=== PATIENT | female | born 1975 | race Caucasian/White ===

== ENCOUNTER 2018-12-21 15:41 | Observation (INO) ==
--- NOTE | 2018-12-21 15:45 | Emergency Department Note ---
Disposition Clinical Impression: Chest pain Disposition: Admitted As Inpatient Chest Pain HPI - General Chief Complaint: ED Chest Pain Stated Complaint: chest discomfort Time Seen by Provider: 12/21/18 15:41 Source: patient Mode of arrival: ambulatory Limitations: no limitations Vital Signs Reviewed: Yes Nursing Notes Reviewed: Yes - History of Present Illness HPI Narrative: Patient has been having midsternal chest pain off and on for the past 7 days. She is not having nausea vomiting fever or chills shortness of breath or diaphoresis at the present time. She has never had anything like this before. She has no family history of cardiac disease Pt complaint: chest pain Onset (ago): day(s) (7) Duration: intermittent Onset: during rest Pain Location: substernal Severity: mild Quality: heaviness Pain Radiation: none Improves with: nothing Worsens with: nothing Associated symptoms: Denies: nausea, vomiting, diaphoresis, dyspnea, syncope, palpitations, fever, cough - Related Data Home Medications Medication Instructions Recorded Confirmed Esomeprazole Magnesium [Nexium 20 mg PO QAM 12/21/18 12/21/18 24Hr] Loratadine/Pseudophed (12 HR) 1 each PO QAM 12/21/18 12/21/18 [Claritin D (12HR)] Allergies Allergy/AdvReac Type Severity Reaction Status Date / Time acetaminophen [From NyQuil] AdvReac Nausea Verified 12/31/17 14:23 aspirin AdvReac Nausea Verified 12/31/17 14:23 dextromethorphan AdvReac Nausea Verified 12/31/17 14:23 [From NyQuil] doxylamine [From NyQuil] AdvReac Nausea Verified 12/31/17 14:23 miconazole AdvReac Itching Verified 12/31/17 14:23 [From Neosporin AF] pseudoephedrine [From NyQuil] AdvReac Nausea Verified 12/31/17 14:23 All systems ED: reviewed and negative except as stated. Review of Systems: As Per HPI Constitutional: Denies: fever, chills, weakness, weight change Eyes: Denies: eye pain, eye discharge, vision change ENT ED: Reports: as per HPI Cardiovascular: Reports: as per HPI, chest pain. Denies: palpitations, dyspnea on exertion, edema, syncope Respiratory: Denies: cough, dyspnea, wheezes, hemoptysis, stridor Gastrointestinal: Denies: abdominal pain, nausea, vomiting, diarrhea, constipation, hematemesis, melena, hematochezia Genitourinary: Denies: dysuria, frequency, hematuria, discharge Musculoskeletal: Denies: back pain, neck pain, arthralgia, myalgia Integumentary: Reports: as per HPI Neurological: Denies: headache, weakness, numbness, paresthesias, confusion, abnormal gait, vertigo Psychiatric: Denies: anxiety, depression, suicidal thoughts, homicidal thoughts, auditory hallucinations, visual hallucinations Endocrine: Denies: fatigue Hematological/Lymphatic: Denies: easy bleeding, easy bruising Allergic/Immunologic: Denies: facial swelling, urticaria Chest Pain PMH - Past Medical History Medical history: Reports: no medical history Psychiatric history: Reports: no psych history - Social History Smoking Status: Current every day smoker Alcohol use: Reports: none Drug use: Reports: none Physical Exam - General Limitations: no limitations General appearance: alert, in no apparent distress - Head Head exam: atraumatic, normocephalic, normal inspection - Eye Eye exam: Present: normal appearance, PERRL, EOMI - ENT ENT exam: normal exam, normal oropharynx, mucous membranes moist - Neck Neck exam: Present: normal inspection, full ROM, trachea midline - Chest Chest inspection: Present: normal inspection, symmetric chest wall rise - Respiratory Respiratory exam: Present: normal lung sounds bilaterally - Cardiovascular Cardiovascular exam: Present: regular rate, normal rhythm, normal heart sounds - Abdominal Exam Abdominal exam: Present: soft, Non-Tender. Absent: tenderness, distention, gua rding, rebound, rigidity - Extremities Exam Extremities exam: Present: normal inspection, full ROM. Absent: tenderness, pedal edema - Back Exam Back exam: Present: normal inspection, full ROM. Absent: tenderness - Neurological Exam Neurological exam: Present: alert, oriented X3 - Psychiatric Psychiatric exam: Present: normal affect, normal mood - Skin Skin exam: Present: warm, dry, intact, normal color Chest Pain - [facility] Narrative Medical decision making narrative: I reviewed the patient's medication list Case was discussed with Dr. Messina who is graciously accepted admission to the hospital - Lab Data Lab results reviewed: Yes I reviewed the patient's lab results. - Radiology Data Radiology results reviewed: Yes I reviewed the patient's radiology results. - EKG Data EKG attestation: Yes I reviewed and interpreted this EKG. EKG results narrative: I reviewed the patient's EKG shows a heart rate is 81 bpm. AL interval is 127 ms QTQTC intervals 376 and 437 ms respectively. R axis of 82 degrees no acute ischemic changes appreciated
[2018-12-21] MEDS ORDERED: Nitroglycerin 0.4 MG TAB.SUBL SL PRN ×2 (15:48→18:38)
[2018-12-21] MEDS ORDERED: 0.9 % Sodium Chloride 1,000 ML IVC SCH ×2 (16:00→18:38)
[2018-12-21 16:02] LABS: Basophils # 0.1 K/mcL (0.0-0.2); Eosinophils # 0.2 K/mcL (0.0-0.6); Hematocrit 45.2 % (35.3-44.9); Hemoglobin 15.3 g/dL (11.5-15.4); Immature Granulocytes % 0.3 % (0-4); Lymphocytes % 32.8 %; Mean Corpuscular HGB Conc 33.8 g/dL (31.6-35.5); Mean Corpuscular Volume 91.7 fL (83.0-100.0); Monocytes # 0.7 K/mcL (0.0-1.3); Monocytes % 7.5 %; Neutrophils # 5.2 K/mcL (1.6-8.9); Platelet Count 295 K/mcL (140-400); Red Blood Count 4.93 M/mcL (3.82-4.97); Red Cell Distribution Width 12.7 % (11.5-14.5); Segmented Neutrophils % 56.4 %
[2018-12-21 16:10] LABS: INR 1.1
[2018-12-21 16:12] LABS: Activated Partial Thrombo Time 39.3 Seconds (26.0-36.0)
[2018-12-21 16:21] LABS: Alanine Aminotransferase 18 Units/L (7-52); Albumin 4.7 g/dL (3.5-5.7); Albumin/Globulin Ratio 1.3 (1.1-2.2); Alkaline Phosphatase 91 Units/L (34-104); Aspartate Amino Transferase 16 Units/L (13-39); BUN/Creatinine Ratio 12 (6-26); Bilirubin,Total 0.3 mg/dL (0.3-1.0); Blood Urea Nitrogen 10 mg/dL (6-20); Calcium 9.4 mg/dL (8.6-10.3); Carbon Dioxide 25 mEq/L (23-29); Chloride 105 mEq/L (98-107); Globulin 3.5 g/dL (2.4-3.5); Glucose 89 mg/dL (70-105); Osmolality,Calculated 285 (280-300); Potassium 4.1 mEq/L (3.5-5.1); Sodium 138 mEq/L (136-145); Total Protein 8.2 g/dL (6.4-8.9); Troponin I < 0.03 ng/mL (< 0.04); eGFR For Non-African Americans > 60 (> 60)
[2018-12-21 16:29] LABS: Bilirubin,Urine Negative (Negative); Blood,Urine Negative (Negative); Clarity,Urine Clear (Clear); Color,Urine Yellow (Yellow); Glucose,Urine (UA) Normal (Normal); Ketones,Urine Negative (Negative); Leukocyte Esterase,Urine Negative (Negative); Nitrite,Urine Negative (Negative); Protein,Urine Negative (Neg-Trace); Urobilinogen,Urine Normal (Normal)
[2018-12-21] MEDS ORDERED: Naloxone 0.4 MG/ML INJ IVP PRN (18:38)
[2018-12-22 06:21] LABS: Basophils # 0.1 K/mcL (0.0-0.2); Basophils % 0.9 %; Eosinophils # 0.2 K/mcL (0.0-0.6); Hematocrit 41.8 % (35.3-44.9); Hemoglobin 13.8 g/dL (11.5-15.4); Immature Granulocytes % 0.2 % (0-4); Lymphocytes # 3.7 K/mcL (0.6-4.6); Lymphocytes % 35.5 %; Mean Corpuscular Hemoglobin 30.6 pg (28.0-33.3); Mean Corpuscular Volume 92.7 fL (83.0-100.0); Mean Platelet Volume 9.8 fL (9.4-12.4); Monocytes # 0.7 K/mcL (0.0-1.3); Monocytes % 6.8 %; Neutrophils # 5.7 K/mcL (1.6-8.9); Platelet Count 261 K/mcL (140-400); Red Blood Count 4.51 M/mcL (3.82-4.97); Red Cell Distribution Width 13.1 % (11.5-14.5); Segmented Neutrophils % 54.6 %
[2018-12-22 06:40] LABS: BUN/Creatinine Ratio 15 (6-26); Blood Urea Nitrogen 11 mg/dL (6-20); Calcium 8.5 mg/dL (8.6-10.3); Carbon Dioxide 23 mEq/L (23-29); Chloride 111 mEq/L (98-107); Glucose 93 mg/dL (70-105); Osmolality,Calculated 289 (280-300); Potassium 4.2 mEq/L (3.5-5.1); Sodium 140 mEq/L (136-145); eGFR For Non-African Americans > 60 (> 60)
[2018-12-22 07:29] VITALS: BP 116/72
[2018-12-22] MEDS ORDERED: Loratadine/Pseudophed (12 HR) 1 EACH TABLET PO SCH (09:00)
--- NOTE | 2018-12-22 09:59 | Internal Med History&Physical ---
Date of Encounter: 12/22/18 Time of Encounter: 09:25 Assessment and Plan (1) Chest pain Current visit: Yes Status: Acute Doubt myocardial ischemia from history and physical. Repeat cardiac enzymes were ordered through emergency room. Qualifiers: Chest pain type: unspecified Qualified Code(s): R07.9 - Chest pain, unspecified Internal Medicine - H&P: HPI Chief complaint: Chest discomfort Admitted From: Emergency Dept Plans for Post Hospital Care: Home History of present illness: Ms. Huerta is a 43 year old female who came to emergency room stating she had onset of chest discomfort approximately 12/13/2018. She describes it as an intermittent "hurt" in her mid chest from her epigastric area to her upper midline chest. There was no significant radiation and no significant dyspnea associated. She denies reproduction of the discomfort with exertion. She has not had previous similar sensation. She reports taking several Tums with improvement. She came to emergency room and was evaluated and was admitted to [facility] floor for ongoing care needs. She states she feels pain-free at present time and back to her baseline. She wishes to be discharged home. Cardiovascular history is negative for hypertension [place] heart failure DVT or pulmonary embolus. Past Med Surg Social Fam HX - Past Medical History Medical history: other Additional medical history: carpal tunnel surgery both wrists. Psychiatric history: no psych history - Past Surgical History Additional surgical history: tubal ligation. UTERINE ABLASION. D&C. LEEP. carpal tunned sx bilateral - Social History Smoking Status: Current every day smoker Smokeless Tobacco Status: No Alcohol use: none Drug use: none - Family History Mother Name: Nakia Huerta Hx Family GI Disorders: Yes Hx Family Endocrine Disorder: Yes Internal Medicine - H&P: Meds Esomeprazole Magnesium [Nexium 24Hr] 20 mg PO QAM 12/21/18 [History] Loratadine/Pseudophed (12 HR) [Claritin D (12HR)] 1 each PO QAM 12/21/18 [History] Allergy/AdvReac Type Severity Reaction Status Date / Time acetaminophen [From NyQuil] AdvReac Nausea Verified 12/31/17 14:23 aspirin AdvReac Nausea Verified 12/31/17 14:23 dextromethorphan AdvReac Nausea Verified 12/31/17 14:23 [From NyQuil] doxylamine [From NyQuil] AdvReac Nausea Verified 12/31/17 14:23 miconazole AdvReac Itching Verified 12/31/17 14:23 [From Neosporin AF] pseudoephedrine [From NyQuil] AdvReac Nausea Verified 12/31/17 14:23 All Systems PM: A 10-system review of systems was performed and is negative for pertinent findings except as documented above in the HPI. Review of systems: Gen.: She reports her weight has increased approximately 15 pounds in the past year, unintentionally Cardiovascular:As per history of present illness Respiratory: She has smoked since age 14 up to one and a half packs per day. She reports having pulmonary function testing approximately 2014 and was told she had COPD. She does not use home oxygen. She denies testing for TAMMY. She reports she was found to have a "lung spot" approximately [address] done in [place]. Chest CT July 2015 showed stability from June 2014 and no further imaging was recommended. GI: She denies disorders of her liver gallbladder or exocrine pancreas : She denies hematuria dysuria or kidney stones Neurologic: She denies large distribution strokes or seizures. Endocrine: She denies diabetes thyroid disease or hyperlipidemia Hematology/oncology: She denies blood disorders cancers or anemia Psychiatric: She denies anxiety depression or other mental health issues [place] skeletal: She has had bilateral carpal tunnel surgery. She denies arthritis gout or other bone joint or muscle disorders. - Constitutional Vitals: Temp Pulse Resp BP Pulse Ox 97.8 F 55 17 116/72 96 12/22/18 06:00 12/22/18 06:00 12/22/18 06:00 12/22/18 06:00 12/22/18 06:00 Exam: Gen.: She is a well-developed well-nourished female lying in bed who appears in no acute distress at present time HEENT: Head is atraumatic and normocephalic. Eyes: EOMI. There is no scleral icterus. Mouth: Mucosa is moist. Neck: Supple and nontender. There is no thyromegaly or adenopathy noted. Heart: Regular without murmurs gallops or ectopics Chest: There is no tenderness on compression of her midsternal area Lungs: No wheezes or crackles are heard. Abdomen: Soft and nontender. No masses or guarding are noted. Extremities: There is no cyanosis edema or clubbing noted. Dorsalis pedis and posttibial pulses are 2 over 2 bilaterally. Neurologic: Mental status: She is talkative and a good historian. Cranial nerves: Smile is symmetric. Forehead wrinkles bilaterally. Tongue protrudes midline. EOMI. Motor: There is no pronator drift. Cerebellar: Finger to nose is intact bilaterally. Skin: Warm and dry Internal Med - H&P Results - Labs CBC & Chem 7: 12/22/18 06:13 12/22/18 06:13 Labs: Short CBC 12/21/18 12/22/18 Range/Units 15:54 06:13 WBC 9.2 10.5 (4.3-11.1) K/mcL Hgb 15.3 13.8 D (11.5-15.4) g/dL Hct 45.2 H 41.8 (35.3-44.9) % Plt Count 295 261 (140-400) K/mcL Neutrophils # 5.2 5.7 (1.6-8.9) K/mcL BMP 12/21/18 12/22/18 15:54 06:13 Sodium 138 140 Potassium 4.1 4.2 Chloride 105 111 H Carbon Dioxide 25 23 BUN 10 11 Creatinine 0.85 0.74 Glucose 89 93 Calcium 9.4 8.5 L Cardiac Enzymes 12/21/18 12/21/18 12/21/18 Range/Units 00:00 15:54 17:55 Troponin I < 0.03 < 0.03 < 0.03 (< 0.04) ng/mL 12/22/18 Range/Units 06:13 Troponin I < 0.03 (< 0.04) ng/mL Liver Function 12/21/18 Range/Units 15:54 Total Bilirubin 0.3 (0.3-1.0) mg/dL AST 16 (13-39) Units/L ALT 18 (7-52) Units/L Alkaline Phosphatase 91 (34-104) Units/L Albumin 4.7 (3.5-5.7) g/dL Urine 12/21/18 Range/Units 16:23 Urine Color Yellow (Yellow) Urine Clarity Clear (Clear) Urine pH 7.0 (5.0-8.0) pH Units Ur Specific [place] 1.020 (1.010-1.025) Urine Protein Negative (Neg-Trace) mg/dL Urine Glucose (UA) Normal (Normal) mg/dL - Impressions ITS Impressions Chest X-Ray 12/21/18 15:43 IMPRESSION: No acute cardiopulmonary process. D/ / 12/21/2018 15:57:03 Raul Jeff MD / serafin Interpreting Provider: Raul Jeff MD
--- NOTE | 2018-12-22 10:09 | Discharge Summary ---
Date of Encounter: 12/22/18 Time of Encounter: 09:25 - Discharge Diagnosis (1) Chest pain Priority: Primary Status: Acute Qualifiers: Chest pain type: unspecified Qualified Code(s): R07.9 - Chest pain, unspecified Hospital course: Ms. Huerta is a 43 year old female who came to emergency room stating she had onset of chest discomfort approximately 12/13/2018. She describes it as an intermittent "hurt" in her mid chest from her epigastric area to her upper midline chest. There was no significant radiation and no significant dyspnea associated. She denies reproduction of the discomfort with exertion. She has not had previous similar sensation. She reports taking several Tums with improvement. She came to emergency room and was evaluated and was admitted to [facility] for ongoing care needs. Initial orders were written by the emergency room physician. I saw her on December 22 and performed the history physical and discharge. When I saw her she stated she was pain-free and wished to be discharged home. Repeat cardiac enzymes showed no evidence of myocardial damage. I told her I did not think the pain was likely myocardial ischemic origin. Etiology of the pain was not determined. I recommended she discontinue smoking and establish with a PCP for further monitoring. - Time Spent with Patient Total time spent providing and/or coordinating discharge services: - Discharge Medications Prescriptions: Continue Esomeprazole Magnesium [Nexium 24Hr] 20 mg PO QAM Loratadine/Pseudophed (12 HR) [Claritin D (12HR)] 1 each PO QAM Home Medications: Esomeprazole Magnesium [Nexium 24Hr] 20 mg PO QAM 12/21/18 [History] Loratadine/Pseudophed (12 HR) [Claritin D (12HR)] 1 each PO QAM 12/21/18 [History] Allergies/Adverse Reactions: Allergy/AdvReac Type Severity Reaction Status Date / Time acetaminophen [From NyQuil] AdvReac Nausea Verified 12/31/17 14:23 aspirin AdvReac Nausea Verified 12/31/17 14:23 dextromethorphan AdvReac Nausea Verified 12/31/17 14:23 [From NyQuil] doxylamine [From NyQuil] AdvReac Nausea Verified 12/31/17 14:23 miconazole AdvReac Itching Verified 12/31/17 14:23 [From Neosporin AF] pseudoephedrine [From NyQuil] AdvReac Nausea Verified 12/31/17 14:23 Date of admission: 12/21/18 18:27 Primary care physician: PCP NONE - Constitutional Vitals: Temp Pulse Resp BP Pulse Ox 97.8 F 55 17 116/72 96 12/22/18 06:00 12/22/18 06:00 12/22/18 06:00 12/22/18 06:00 12/22/18 06:00 - Patient Status Disposition: Home, Self-Care - Discharge Instructions Follow Up With: NONE,PCP [Primary Care Provider] - 1 week - Diet and Activity Activity: resume usual activities as tolerated Diet: advance to your usual diet
--- NOTE | 2018-12-25 09:50 | Electrocardiograph Report ---
[address] [address] Test Date: 2018-12-21 Pat Name: Nakia Huerta Department: EDP-16 Room: [facility] Gender: F Neon Sign Maker: : [id number] Requested By: Mason Call Order Number: [id number] Reading MD: Lopez Dexter Measurements Intervals [place] Rate: 81 P: 60 [place]: 127 QRS: 82 QRSD: 84 T: 31 QT: 376 QTc: 437 Interpretive Statements Sinus rhythm Electronically Signed On 12-25-2018 9:49:06 EDT by Lopez Dexter
== END 2018-12-22 10:35 | disposition home or self-care (01) ==
LOC: INPPIK 15:41 → EMEROOPIK 15:41 → INPPIK 18:54
PROVIDERS: ADMIT Internal Medicine; ATTEND Internal Medicine